=== PATIENT | female | born 1950 | race Two or more races ===

== ENCOUNTER 2021-01-29 19:40 | Emergency (ER) | payer MEDICARE, BC ==
[~2021-01-29] VITALS: Ht 170.2 cm; Wt 61.2 kg
[2021-01-29 19:42] VITALS: BP 142/83
--- NOTE | 2021-01-29 20:05 | NUR ---
RADIOLOGY AT BEDSIDE
[2021-01-29] MEDS ORDERED: IBUP-1957 PO (20:51)
[2021-01-29] MEDS ORDERED: HYDR-4275 PO (20:51)
== END 2021-01-29 21:42 | disposition home or self-care (01) ==
LOC: ER 19:42
DX: S42.391A Other fracture of shaft of right humerus, initial encounter for closed fracture (principal); Z88.0 Allergy status to penicillin; Z88.2 Allergy status to sulfonamides; W01.0XXA Fall on same level from slipping, tripping and stumbling without subsequent striking against object, initial encounter; Y93.89 Activity, other specified; Y92.090 Kitchen in other non-institutional residence as the place of occurrence of the external cause; Y99.8 Other external cause status
CPT/HCPCS: 73030-TC; 73060-TC

== ENCOUNTER 2021-02-04 15:24 | Emergency (ER) | payer MEDICARE, BC ==
[~2021-02-04] VITALS: Ht 170.2 cm; Wt 61.2 kg
[~2021-02-04 15:24] MED LIST: HYDR-4275 PO; IBUP-1957 PO
[2021-02-04 15:31] VITALS: BP 150/87
--- NOTE | 2021-02-04 16:01 | NUR ---
CALLED DR. MCELROY AT [facility] [phone] WILL BE PAGED.
--- NOTE | 2021-02-04 16:29 | NUR ---
Patient discharged to home in stable condition. Written and verbal after care instructions given. Patient verbalizes understanding of instruction. Pt ambulatory with a steady gait. Pt teaching provided regarding sling use. demonstrated proper placedment of arm in the sling.
== END 2021-02-04 16:31 | disposition home or self-care (01) ==
LOC: ER 15:24
DX: S42.391D Other fracture of shaft of right humerus, subsequent encounter for fracture with routine healing (principal); S50.11XD Contusion of right forearm, subsequent encounter; Z88.0 Allergy status to penicillin; Z88.2 Allergy status to sulfonamides; W01.0XXD Fall on same level from slipping, tripping and stumbling without subsequent striking against object, subsequent encounter
CPT/HCPCS: 99281; A6403